=== PATIENT | female | born 1985 | race Caucasian/White ===

== ENCOUNTER 2016-09-29 21:00 | Inpatient (IN) | payer MEDICAID, OTHER ==
[~2016-09-29] VITALS: Ht 157.5 cm; Wt 60.3 kg
[2016-09-29 22:38] LABS: BASOPHILS % (AUTO) 0.8 % (0.0-2.0); EOSINOPHILS % (AUTO) 2.2 % (1.0-6.0); HEMATOCRIT 42.9 % (36-46); HEMOGLOBIN 14.4 g/dL (12.0-16.0); LYMPHOCYTES # (AUTO) 2.4 K/uL (1.0-4.8); MEAN CORPUSCULAR HEMOGLOBIN 31.4 pg (26.0-34.0); MEAN CORPUSCULAR HGB CONC 33.5 G/dL (31.0-37.0); MEAN CORPUSCULAR VOLUME 94 fL (80-100); MONOCYTES # (AUTO) 0.4 K/uL (0.1-1.0); MONOCYTES % (AUTO) 6.5 % (2.0-9.0); NEUTROPHILS # (AUTO) 3.5 K/uL (1.8-7.7); NEUTROPHILS % (AUTO) 53.5 % (40.0-70.0); PLATELET COUNT (AUTO) 267 K/uL (150-450); RED BLOOD CELL COUNT(AUTO) 4.58 MIL/uL (4.00-5.20); RED CELL DISTRIBUTION WIDTH 14.4 % (11.5-14.5); WHITE BLOOD COUNT (AUTO) 6.5 K/uL (4.5-11.0)
[2016-09-29 22:48] LABS: ANION GAP 9 mmol/L (8-16); CALCIUM, TOTAL 8.8 mg/dL (8.8-10.5); CARBON DIOXIDE 26 mmol/L (22-29); CHLORIDE 103 mmol/L (98-107); CREATININE 0.79 mg/dL (0.60-1.30); GLOMERULAR FILTR. RATE CALC > 60 mL/min (>60); POTASSIUM 3.7 mmol/L (3.5-5.1); SODIUM SERUM 138 mmol/L (136-145); UREA NITROGEN, BLOOD 10 mg/dL (7-18)
[2016-09-29 22:55] LABS: ALANINE AMINOTRANSFERASE 21 U/L (12-78); ALBUMIN 3.8 g/dL (3.4-5.0); ASPARTATE AMINOTRANSFERASE 19 U/L (15-37); BILIRUBIN,TOTAL 0.6 mg/dL (0.1-1.0); TOTAL PROTEIN, SERUM 7.1 g/dL (6.4-8.2)
[2016-09-29] MEDS ORDERED: PERTUSS(ACELL),DIPH,TET VAC/PF 0.5 ML VIAL IM ONE (23:15)
[2016-09-29] MEDS ORDERED: LIDOCAINE HCL BUFFERED 1% 20 ML VIAL INJ ONE (23:15)
[2016-09-29] MEDS ORDERED: LORazepam 2 MG TABLET PO ONE (23:15)
[2016-09-29] MEDS ORDERED: BACITRACIN 0.9 GM PACKET OINTMENT TP ONE (23:15)
[2016-09-30] MEDS: ZOLPIDEM TARTRATE 10 MG TABLET PO PRN ×2 (01:43→23:32)
[2016-09-30 01:45] VITALS: BP 116/61
[2016-09-30] MEDS ORDERED: ESCITALOPRAM OXALATE 20 MG TABLET PO SCH ×2 (08:45→09:00)
[2016-09-30] MEDS: ESCITALOPRAM OXALATE 10 MG TABLET PO SCH (09:03)
[2016-09-30] MEDS: NICOTINE 21 MG/24 HOUR PATCH TD SCH (09:10)
[2016-09-30] MEDS ORDERED: ONDANSETRON HCL 4 MG TABLET PO PRN (09:15)
[2016-09-30] MEDS ORDERED: LOPERAMIDE HCL 2 MG CAPSULE PO PRN (09:15)
[2016-09-30] MEDS ORDERED: ACETAMINOPHEN 325 MG TABLET PO PRN (09:15)
[2016-09-30] MEDS ORDERED: PETROLATUM,WHITE 71 GM JELLY TP PRN (09:15)
[2016-09-30] MEDS ORDERED: BENZOCAINE/MENTHOL LOZENGE MM PRN (09:15)
[2016-09-30] MEDS ORDERED: MAGNESIUM HYDROXIDE SUSPENSION 30 ML UDCUP PO PRN (09:15)
[2016-09-30] MEDS ORDERED: BACITRACIN 28.4 GM OINTMENT TP PRN (09:15)
[2016-09-30] MEDS ORDERED: ALBUTEROL SULFATE HFA 90 MCG/PUFF 8 GM INHALER IH PRN (09:15)
[2016-09-30] MEDS ORDERED: CloNIDine HCL 0.1 MG TABLET PO PRN (09:15)
[2016-09-30] MEDS ORDERED: MAG HYDROX/AL HYDROX/SIMETH ES 30 ML SUSPENSION UDCUP PO PRN (09:15)
[2016-09-30 09:27] VITALS: BP 106/63
[2016-09-30] MEDS: LORazepam 2 MG TABLET PO PRN ×2 (12:18→17:36)
[2016-09-30 16:29] VITALS: BP 109/70
[2016-10-01 05:03] VITALS: BP 110/68
[2016-10-01] MEDS: LORazepam 2 MG TABLET PO PRN ×2 (09:07→13:53)
[2016-10-01] MEDS: NICOTINE 21 MG/24 HOUR PATCH TD SCH (09:07)
[2016-10-01] MEDS: ESCITALOPRAM OXALATE 10 MG TABLET PO SCH (09:08)
[2016-10-01 16:00] VITALS: BP 130/89
[2016-10-01] MEDS: HALOPERIDOL 5 MG TABLET PO PRN (16:25)
[2016-10-02 08:34] VITALS: BP 97/62
[2016-10-02 09:10] VITALS: BP 133/85
[2016-10-02] MEDS: ESCITALOPRAM OXALATE 10 MG TABLET PO SCH (09:13)
[2016-10-02] MEDS: LORazepam 2 MG TABLET PO PRN ×2 (09:14→16:04)
[2016-10-02] MEDS: HALOPERIDOL 5 MG TABLET PO PRN ×2 (09:14→16:04)
[2016-10-02] MEDS: NICOTINE 21 MG/24 HOUR PATCH TD SCH (09:14)
[2016-10-02 16:11] VITALS: BP 122/68
[2016-10-03 07:06] VITALS: BP 100/64
[2016-10-03] MEDS: NICOTINE 21 MG/24 HOUR PATCH TD SCH (08:57)
[2016-10-03] MEDS: ESCITALOPRAM OXALATE 10 MG TABLET PO SCH (08:57)
[2016-10-03 09:00] VITALS: BP 112/70
[2016-10-03] MEDS: LORazepam 2 MG TABLET PO PRN ×2 (09:01→14:40)
[2016-10-03 16:10] VITALS: BP 118/76
[2016-10-03] MEDS: ZOLPIDEM TARTRATE 10 MG TABLET PO PRN (21:20)
[2016-10-04 02:25] VITALS: BP 129/83
[2016-10-04] MEDS: IBUPROFEN 600 MG TABLET PO PRN ×2 (02:27→12:13)
[2016-10-04] MEDS: ESCITALOPRAM OXALATE 10 MG TABLET PO SCH (08:05)
[2016-10-04] MEDS: NICOTINE 21 MG/24 HOUR PATCH TD SCH (08:05)
[2016-10-04] MEDS: LORazepam 2 MG TABLET PO PRN ×3 (08:06→17:02)
[2016-10-04 08:28] VITALS: BP 121/57
[2016-10-04 12:11] VITALS: BP 112/82
[2016-10-04 16:19] VITALS: BP 122/74
[2016-10-04] MEDS: ZOLPIDEM TARTRATE 10 MG TABLET PO PRN (21:03)
[2016-10-05 08:24] VITALS: BP 121/62
[2016-10-05] MEDS: ESCITALOPRAM OXALATE 10 MG TABLET PO SCH (08:34)
[2016-10-05] MEDS: NICOTINE 21 MG/24 HOUR PATCH TD SCH (08:34)
[2016-10-05] MEDS: LORazepam 2 MG TABLET PO PRN (08:34)
[2016-10-05] MEDS ORDERED: ESCI10TA PO (10:21)
== END 2016-10-05 14:23 | disposition home or self-care (01) | DRG 740 ==
LOC: EMS 21:00 → B3A 22:51
PROC: 0XQDXZZ Repair Right Lower Arm, External Approach (ICD-10-PCS; principal; 2016-09-29)
DX: F33.3 Major depressive disorder, recurrent, severe with psychotic symptoms (principal); R45.851 Suicidal ideations; F17.200 Nicotine dependence, unspecified, uncomplicated; F90.9 Attention-deficit hyperactivity disorder, unspecified type; G47.00 Insomnia, unspecified; S61.519A Laceration without foreign body of unspecified wrist, initial encounter; X78.9XXA Intentional self-harm by unspecified sharp object, initial encounter; F41.9 Anxiety disorder, unspecified; S51.811A Laceration without foreign body of right forearm, initial encounter; Y93.89 Activity, other specified; Y92.89 Other specified places as the place of occurrence of the external cause; Y99.8 Other external cause status; Z71.41 Alcohol abuse counseling and surveillance of alcoholic; Z71.6 Tobacco abuse counseling; Z72.89 Other problems related to lifestyle; Z79.899 Other long term (current) drug therapy
CPT/HCPCS: 12002; 90471; 90715; 99285; G0480